=== PATIENT | male | born 1990 | race Caucasian/White ===

== ENCOUNTER 2019-11-22 17:02 | Outpatient (CLI) | payer OTHER, SELFPAY ==
--- NOTE | ~2019-11-22 | XR_ITS ---
EXAMINATION: XR thoracic spine 3V DATE: 11/22/2019 17:20 INDICATION: Thoracic spine pain TECHNIQUE: One AP, lateral and lateral swimmer's views of the thoracic spine were obtained. COMPARISON: None. FINDINGS: 7 degrees dextrocurvature measured between T4 and T9. Sagittal alignment is normal. Vertebral body an d disc heights are normal. Visualized portions of the lungs are clear. No pleural effusion. Cardiomed iastinal silhouette is normal.. IMPRESSION: 1. 7 degree thoracic dextrocurvature. Otherwise normal study. Reviewed, dictated and finalized at location A.
== END 2019-11-22 17:03 | disposition home or self-care (01) ==
LOC: ANHIMG 17:06
PROVIDERS: PCP Internal Medicine; Visit Provider Internal Medicine
DX: M54.6 Pain in thoracic spine (principal)
CPT/HCPCS: 72072